=== PATIENT | male | born 1950 | race African-American/Black ===

== ENCOUNTER 2021-02-14 00:57 | Inpatient (IN) | payer MEDICARE, OTHER ==
[~2021-02-14] VITALS: Ht 177.8 cm; Wt 74.8 kg
[2021-02-14] MEDS ORDERED: IPRATROPIUM BROMIDE (0.02%) 0.5MG/2.5ML NEB HHN STA (01:08)
[2021-02-14] MEDS ORDERED: METHYLPREDNISOLONE SOD SUCC 125 MG/2 ML VIAL IV STA (01:08)
[2021-02-14] MEDS ORDERED: MAGNESIUM 2 G PREMIX 50 ML IV ONE (01:15)
[2021-02-14 01:31] LABS: BASOPHILS % 0.6 % (0.0-2.0); EOSINOPHILS % 1.6 % (0.0-5.0); HEMATOCRIT. 41.5 % (42.0-52.0); HEMOGLOBIN. 13.6 g/dL (14.0-18.0); LYMPHOCYTES % 27.2 % (20.0-50.0); MEAN CORPUSCULAR HEMOGLOBIN 29.6 pg (28.0-32.0); MEAN CORPUSCULAR VOLUME 89.9 fL (80.0-94.0); MEAN PLATELET VOLUME 6.8 fl (7.4-10.4); MONOCYTES % 7.7 % (2.0-8.0); NEUTROPHILS % 62.9 % (40.0-76.0); PLATELET 368 x1000/uL (130-400); RED BLOOD CELL COUNT 4.62 mill/uL (4.7-6.1); RED CELL DISTRIBUTION WIDTH 16.2 % (11.6-14.6)
[2021-02-14 01:39] LABS: CHLORIDE 106 mEq/L (98-107)
[2021-02-14 01:54] LABS: BG BASE EXCESS -1.3 mmol/L (-2.0-2.0); BG CARBOXYHEMOGLOBIN 1.1 % (0.5-1.5); BG DEOXYHEMOGLOBIN 63.1 % (0.0-5.0); BG FRACTION INSPIRED OXYGEN 28; BG HCO3 ACT 26.7 mmol/L (22.0-26.0); BG METHEMOGLOBIN 0.3 % (0.0-1.5); BG OXYHEMOGLOBIN 35.5 % (94.0-97.0); BG PCO2 58.6 mmHg (35.0-45.0); BG PH 7.276 (7.350-7.450); BG PO2 < 30.3 mmHg (75.0-100.0); BG SAMPLE SITE RIGHT RADIAL; BG TOTAL HEMOGLOBIN 14.2 g/dL (12.0-18.0); BG VENT MODE NASAL CANNULA
[2021-02-14] MEDS: ALBUTEROL (0.083%) 2.5MG/3ML NEB HHN SCH ×3 (01:56→03:00)
[2021-02-14] MEDS ORDERED: CLONIDINE 0.1MG TABLET PO PRN (07:45)
[2021-02-14] MEDS ORDERED: HYDROCODONE/ACETAMINOPHEN 5/325MG TABLET PO PRN (07:45)
[2021-02-14] MEDS ORDERED: GUAIFENESIN 200MG/10ML SUGAR FREE UDC PO PRN (07:45)
[2021-02-14] MEDS ORDERED: ONDANSETRON HCL 4MG/2ML INJ IV PRN (07:45)
[2021-02-14] MEDS ORDERED: MAGNESIUM/ALUMINUM HYDROXIDE/SIMETHICONE 30ML UDC PO PRN (07:45)
[2021-02-14] MEDS ORDERED: DIPHENHYDRAMINE 50MG/ML VIAL IV PRN (07:45)
[2021-02-14] MEDS ORDERED: DOCUSATE SODIUM 100MG CAPSULE PO PRN (07:45)
[2021-02-14] MEDS ORDERED: HYDRALAZINE 20MG/ML VIAL IV PRN (07:45)
[2021-02-14] MEDS ORDERED: ACETAMINOPHEN 325MG TABLET PO PRN (07:45)
[2021-02-14] MEDS ORDERED: LORAZEPAM 2MG/ML CPJ IV PRN (07:45)
[2021-02-14] MEDS ORDERED: MORPHINE SULFATE 2 MG/ML CPJ (NOT FOR IM USE) IV PRN (07:45)
[2021-02-14] MEDS ORDERED: LEVOFLOXACIN 500MG PREMIX 100 ML IV SCH (08:00)
[2021-02-14] MEDS ORDERED: NALOXONE HCL 0.4MG/ML VIAL IV PRN (08:00)
[2021-02-14] MEDS: ENOXAPARIN 40MG/0.4ML SYR SUBCUT SCH (08:20)
[2021-02-14 09:29] LABS: BG BASE EXCESS -4.1 mmol/L (-2.0-2.0); BG CARBOXYHEMOGLOBIN 0.6 % (0.5-1.5); BG DEOXYHEMOGLOBIN 4.1 % (0.0-5.0); BG HCO3 ACT 20.2 mmol/L (22.0-26.0); BG METHEMOGLOBIN 0.3 % (0.0-1.5); BG OXYGEN SATURATION 95.9 % (92.0-98.5); BG PCO2 34.8 mmHg (35.0-45.0); BG PH 7.381 (7.350-7.450); BG PO2 83.3 mmHg (75.0-100.0); BG SAMPLE SITE RIGHT RADIAL; BG TOTAL HEMOGLOBIN 15.2 g/dL (12.0-18.0); BG VENT MODE ROOM AIR
[2021-02-14 12:00] VITALS: BP 122/72
[2021-02-14] MEDS: METHYLPREDNISOLONE SOD SUCC 125 MG/2 ML VIAL IV SCH ×2 (14:00→22:17)
[2021-02-14] MEDS: SODIUM CHLORIDE 0.9% INJ 3ML FLUSH IVF SCH ×2 (14:01→22:18)
[2021-02-14 14:15] VITALS: BP 115/72
[2021-02-14 16:00] VITALS: BP 122/71
[2021-02-14] MEDS: IPRATROPIUM/ALBUTEROL 0.5-3(2.5)MG/3ML NEB HHN PRN ×2 (16:33→21:53)
[2021-02-14 16:35] LABS: CREATINE KINASE 228 IU/L (39-308)
[2021-02-14 16:36] LABS: CREATINE KINASE MB FRACTION 6.7 ng/mL (0.5-3.6)
[2021-02-14 20:00] VITALS: BP 124/84
[2021-02-15] VITALS: BP 124/85
[2021-02-15 00:30] LABS: CREATINE KINASE 200 IU/L (39-308)
[2021-02-15 01:32] LABS: CREATINE KINASE MB FRACTION 5.8 ng/mL (0.5-3.6)
[2021-02-15 04:00] VITALS: BP 128/84
[2021-02-15] MEDS: METHYLPREDNISOLONE SOD SUCC 125 MG/2 ML VIAL IV SCH ×3 (05:37→21:08)
[2021-02-15] MEDS: SODIUM CHLORIDE 0.9% INJ 3ML FLUSH IVF SCH ×3 (05:38→21:08)
[2021-02-15 06:40] LABS: HEMATOCRIT. 36.3 % (42.0-52.0); HEMOGLOBIN. 12.1 g/dL (14.0-18.0); MEAN CORPUSCULAR HEMOGLOBIN 29.3 pg (28.0-32.0); MEAN PLATELET VOLUME 7.4 fl (7.4-10.4); PLATELET 341 x1000/uL (130-400); RED BLOOD CELL COUNT 4.12 mill/uL (4.7-6.1); RED CELL DISTRIBUTION WIDTH 15.6 % (11.6-14.6)
[2021-02-15 08:00] VITALS: BP 139/91
[2021-02-15] MEDS: IPRATROPIUM/ALBUTEROL 0.5-3(2.5)MG/3ML NEB HHN PRN ×2 (08:03→18:17)
[2021-02-15 08:34] LABS: CHLORIDE 104 mEq/L (98-107)
[2021-02-15] MEDS: LEVOFLOXACIN 500MG PREMIX 100 ML IV SCH (09:58)
[2021-02-15] MEDS: ENOXAPARIN 40MG/0.4ML SYR SUBCUT SCH (09:58)
[2021-02-15 12:00] VITALS: BP 144/73
[2021-02-15 16:00] VITALS: BP 137/92
[2021-02-15 20:00] VITALS: BP 133/83
[2021-02-15] MEDS: GUAIFENESIN 600MG ER TABLET PO SCH (21:08)
[2021-02-16] VITALS: BP 125/88
[2021-02-16 04:00] VITALS: BP 147/60
[2021-02-16] MEDS: METHYLPREDNISOLONE SOD SUCC 125 MG/2 ML VIAL IV SCH ×3 (06:04→21:36)
[2021-02-16] MEDS: SODIUM CHLORIDE 0.9% INJ 3ML FLUSH IVF SCH ×3 (06:05→22:24)
[2021-02-16] MEDS: BUDESONIDE 0.5MG/2ML NEB HHN SCH (07:42)
[2021-02-16] MEDS: IPRATROPIUM/ALBUTEROL 0.5-3(2.5)MG/3ML NEB HHN SCH ×2 (07:43→18:24)
[2021-02-16 08:00] VITALS: BP 137/91
[2021-02-16] MEDS: GUAIFENESIN 600MG ER TABLET PO SCH ×2 (08:29→21:36)
[2021-02-16] MEDS: LEVOFLOXACIN 500MG PREMIX 100 ML IV SCH (08:30)
[2021-02-16] MEDS: ENOXAPARIN 40MG/0.4ML SYR SUBCUT SCH (08:30)
[2021-02-16 12:00] VITALS: BP 136/82
[2021-02-16 16:00] VITALS: BP 133/76
[2021-02-16 18:13] LABS: PLATELET ESTIMATE NORMAL
[2021-02-16 20:00] VITALS: BP 134/84
[2021-02-17] VITALS: BP 135/91
[2021-02-17] MEDS: IPRATROPIUM/ALBUTEROL 0.5-3(2.5)MG/3ML NEB HHN SCH ×3 (01:04→14:52)
[2021-02-17] MEDS: BUDESONIDE 0.5MG/2ML NEB HHN SCH ×3 (01:05→21:43)
[2021-02-17 04:00] VITALS: BP 137/86
[2021-02-17] MEDS: SODIUM CHLORIDE 0.9% INJ 3ML FLUSH IVF SCH ×3 (05:08→21:21)
[2021-02-17] MEDS: METHYLPREDNISOLONE SOD SUCC 125 MG/2 ML VIAL IV SCH ×3 (05:08→21:20)
[2021-02-17 07:56] VITALS: BP 128/90
[2021-02-17] MEDS: LEVOFLOXACIN 500MG PREMIX 100 ML IV SCH (08:54)
[2021-02-17] MEDS: ENOXAPARIN 40MG/0.4ML SYR SUBCUT SCH (08:54)
[2021-02-17] MEDS: GUAIFENESIN 600MG ER TABLET PO SCH ×2 (08:54→21:20)
[2021-02-17 11:05] VITALS: BP 123/80
[2021-02-17 15:33] VITALS: BP 128/86
[2021-02-17 20:00] VITALS: BP 136/97
[2021-02-17] MEDS: IPRATROPIUM/ALBUTEROL 0.5-3(2.5)MG/3ML NEB HHN PRN (21:42)
[2021-02-18] VITALS: BP 142/85
[2021-02-18 04:30] VITALS: BP 134/89
[2021-02-18] MEDS: SODIUM CHLORIDE 0.9% INJ 3ML FLUSH IVF SCH ×2 (05:11→14:25)
[2021-02-18] MEDS: METHYLPREDNISOLONE SOD SUCC 125 MG/2 ML VIAL IV SCH ×3 (05:12→14:25)
[2021-02-18 08:00] VITALS: BP 147/97
[2021-02-18] MEDS: GUAIFENESIN 600MG ER TABLET PO SCH (08:37)
[2021-02-18] MEDS: ENOXAPARIN 40MG/0.4ML SYR SUBCUT SCH (08:37)
[2021-02-18] MEDS: LEVOFLOXACIN 500MG PREMIX 100 ML IV SCH (08:38)
[2021-02-18 09:52] LABS: HEMATOCRIT. 40.3 % (42.0-52.0); HEMOGLOBIN. 12.9 g/dL (14.0-18.0); MEAN CORPUSCULAR HEMOGLOBIN 29.1 pg (28.0-32.0); MEAN CORPUSCULAR VOLUME 90.7 fL (80.0-94.0); MEAN PLATELET VOLUME 7.3 fl (7.4-10.4); PLATELET 324 x1000/uL (130-400); RED BLOOD CELL COUNT 4.44 mill/uL (4.7-6.1); RED CELL DISTRIBUTION WIDTH 16.1 % (11.6-14.6)
[2021-02-18 10:08] LABS: CHLORIDE 105 mEq/L (98-107)
[2021-02-18 12:11] VITALS: BP 130/85
[2021-02-18 14:01] LABS: PLATELET ESTIMATE NORMAL
[2021-02-18 15:44] VITALS: BP 130/85
== END 2021-02-18 16:15 | disposition home or self-care (01) | DRG 189 ==
LOC: ER 01:28 → MICUSO 04:13 → ENRESERV 10:34 → 6WST 10:57
PROVIDERS: ADMIT Internal Medicine; ATTEND Internal Medicine
DX: J96.01 Acute respiratory failure with hypoxia (principal); N17.0 Acute kidney failure with tubular necrosis; J44.1 Chronic obstructive pulmonary disease with (acute) exacerbation; E44.1 Mild protein-calorie malnutrition; R65.10 Systemic inflammatory response syndrome (SIRS) of non-infectious origin without acute organ dysfunction; D72.829 Elevated white blood cell count, unspecified; E86.0 Dehydration; Z20.822 Contact with and (suspected) exposure to COVID-19; F17.210 Nicotine dependence, cigarettes, uncomplicated; I10 Essential (primary) hypertension; F12.90 Cannabis use, unspecified, uncomplicated; Z23 Encounter for immunization; Z82.49 Family history of ischemic heart disease and other diseases of the circulatory system; Z68.23 Body mass index [BMI] 23.0-23.9, adult
CPT/HCPCS: 36415; 36600; 71045; 80048; 80053; 82375; 82550; 82553; 82805; 83605; 83880; 84443; 84484; 85025; 87426; 93005; 94618; 94640; 99291; J1650; J1956; J2930; J3475; J7626